=== PATIENT | female | born 1995 | race Hispanic/Latino ===

== ENCOUNTER 2022-05-04 20:10 | Emergency (ER) | payer OTHER, SELFPAY ==
[2022-05-04 20:11] VITALS: BP 129/83; PULSE 78; RESP 18; TEMP 35.9; O2SAT 100; BMI 23.1
--- NOTE | 2022-05-04 21:04 | CT_ITS ---
INDICATION: mono, left abd pain EXAMINATION: CT Abdomen And Pelvis W/O Contrast Injection TECHNIQUE: Helically acquired images were obtained of the abdomen and pelvis without the use of IV contrast. A radiation dose optimization technique was used for this scan. Oral contrast: None. COMPARISON: None FINDINGS: Evaluation of the solid organs and vascular structures is limited without intravenous contrast. Visualized lung bases: Unremarkable Liver: Unremarkable Gallbladder: Unremarkable Spleen: Unremarkable Pancreas: Unremarkable Adrenal Glands: Unremarkable Kidneys: Unremarkable Vasculature: Unremarkable GI Tract: Unremarkable Lymphadenopathy: None Peritoneum: No ascites. Bladder: Unremarkable Reproductive organs: Unremarkable Bones/Soft tissues: No suspicious osseous or soft tissue lesions CT/Abdomen/Pelvis without Cont IMPRESSION: No acute abnormalities in the abdomen or pelvis. Electronically Signed: Don Diaz MD at 22:56 EDT ,
--- NOTE | 2022-05-04 21:17 | EDS_ITS ---
HPI History of Present Illness Chief Complaint: Abd Pain Informant: patient Onset/Context/Timing Onset: Days (Worse today) Context: Gradual Onset Current Severity: Moderate Maximum Severity: Moderate Narrative Narrative: Patient presents with left-sided abdominal pain. She reports having symptoms of mono for the past 3 weeks but was tested positive on Wednesday of last week, April 29. She states her doctor specifically told her to avoid any abdominal trauma due to concern for spleen injury. Patient states that she has had some left-sided abdominal pain since last week but it did seem to be worsened today. PFSH PFSH Medical History no medical history no medical history Allergy/AdvReac Type Severity Reaction Status Date / Time sulfamethoxazole Allergy Rash Verified 05/04/22 20:11 [From Bactrim] trimethoprim [From Bactrim] Allergy Rash Verified 05/04/22 20:11 Social History Smoking Status: Never smoker ROS ROS ED Constitutional Constitutional ED: Denies chills or fever(s) Eyes Eyes: Denies change in vision or discharge from eye(s) ENT ENT ED: Denies discharge from eye(s), rhinorrhea or sore throat Cardiovascular Cardiovascular: Denies chest pain or palpitations Respiratory/Chest Respiratory/Chest: Denies cough or dyspnea Gastrointestinal Gastrointestinal: Reports abdominal pain; Denies diarrhea, nausea or vomiting Genitourinary Genitourinary ED: Denies difficulty urinating or dysuria Musculoskeletal Musculoskeletal: Reports back pain; Denies extremity pain Integumentary Denies Abrasions or rash Neurologic Neurologic: Denies headache(s) or weakness Allergic/Immunologic Allergic/Immunologic ED: Denies lip swelling or urticaria EXAM Physical Exam Const Vital Signs: 05/04/22 20:11 Temperature 96.6 F L Temperature Source Temporal Pulse Rate 78 Respiratory Rate 18 Blood Pressure 129/83 H Blood Pressure Mean 98 Pulse Ox 100 Oxygen Delivery Method Room Air Positive well nourished and well developed General Appearance ED: well developed HEENT Reports normocephalic and head/scalp atraumatic Eyes PERRL and EOMs intact bilaterally Neck supple Chest Wall inspection of chest normal and palpation of chest normal Resp normal respiratory effort and clear to auscultation bilaterally Cardio regular rate and regular rhythm GI GI Narrative: Left-sided abdominal tenderness. No guarding or rebound. Palpation: soft Extremity normal to inspection Neuro oriented x3 and no sensory deficits noted Sensorium / Orientation: alert Motor Exam: strength 5/5 throughout Psych mental status grossly normal Skin no rashes or lesions noted MDM MDM MDM Narrative Medical decision making narrative: Patient declines anything for pain here. Lab work obtained along with a CT of the abdomen pelvis. Lab Data Attestation: I reviewed the patient's lab results. Labs: Laboratory Results - last 24 hr 05/04/22 05/04/22 05/04/22 21:15 21:15 21:15 WBC 8.7 RBC 4.22 Hgb 12.7 Hct 37.6 MCV 89.1 MCH 30.1 MCHC 33.8 RDW Std Deviation 40.7 RDW Coeff of Maribel 12.4 Plt Count 213 MPV 11.7 Immature Gran % (Auto) 0.100 Neut % (Auto) 62.8 Lymph % (Auto) 27.3 [place] % (Auto) 6.5 Eos % (Auto) 3.0 Baso % (Auto) 0.3 Absolute Neuts (auto) 5.5 Absolute Lymphs (auto) 2.37 Nucleated RBC % 0 Sodium 139 Potassium 3.7 Chloride 106 Carbon Dioxide 28.0 Anion Gap 5 BUN 13 Creatinine 0.86 Estim Creat Clear Calc 97.24 Est GFR (MDRD) Af Amer 103 Est GFR (MDRD) Non-Af 85 BUN/Creatinine Ratio 15.1 Glucose 94 Calcium 9.0 Serum , Qual NEGATIVE Radiography Diagnostic Testing: Clinical Impression(s) from Imaging Studies Abdomen/Pelvis CT 05/04/22 21:04 IMPRESSION: No acute abnormalities in the abdomen or pelvis. Electronically Signed: Don Diaz MD at 22:56 EDT , Treatment and Re-Evaluation Narrative: Lab work is unremarkable. test negative. CT scan of the flank reveals no acute abnormalities. Spleen specifically is normal in size. Test results discussed with patient and at bedside. Reassurance is given. Return instructions provided. Discharge Plan Triage Chief Complaint: Abd Pain ED Provider: Estefanía Damon Dx/Rx/DC Orders Clinical Impression: Abdominal pain Instructions: ED Abdominal Pain Unkn Cause Fem Stand Alone Forms: ED Work / School Excuse Primary Care Provider: Care Physician,No Primary Referrals: Alessandra Harrison MD [STAFF PHYSICIAN] - As Needed NOT,DEFINED [NON-STAFF] - Disposition Disposition: Home, Self Care
[2022-05-04 21:24] LABS: Absolute Lymphocyte Count 2.37 X10^3/uL (0.83-4.51); Absolute Neutrophil Count 5.5 X10^3/uL (2.0-7.7); Basophil# 0.03 X10^3/uL; Basophil% 0.3 % (0-1); Eosinophil# 0.26 X10^3/uL; Hematocrit 37.6 % (37-47); Hemoglobin 12.7 g/dL (12.0-15.0); Lymphocyte # 2.37 X10^3/ul (0.83-4.51); Lymphocyte % 27.3 % (19-41); Mean Corp Hgb Conc 33.8 g/dL (32-36); Mean Corpuscular Hgb 30.1 pg (27.0-32.0); Mean Corpuscular Volume 89.1 fL (81-99); Mean Platelet Vol. 11.7 fl (6.2-12.0); Monocyte# 0.56 X10^3/uL; Monocyte% 6.5 % (0-10); NRBC Flagged by Analyzer 0 % (0-5); Neutrophil # 5.45 X10^3/uL (2.7-7.7); Neutrophil % 62.8 % (47-70); Platelet Count 213 K/mm3 (150-450); RBC Distribution Width CV 12.4 % (11.6-14.6); RBC Distribution Width SD 40.7 fl (35.1-43.9); Red Blood Count 4.22 M/mm3 (4.2-5.4); White Blood Count 8.7 K/mm3 (4.4-11.0)
[2022-05-04 21:35] LABS: Anion Gap 5 (5-15); BUN 13 mg/dL (7-18); BUN/Creat Ratio 15.1 RATIO (10-20); Chloride 106 mmol/L (98-107); Creatinine, Serum 0.86 mg/dL (0.55-1.02); EST Glomerular Filtration Rate 85 mL/min (>60); Est Glom Filt Rate - Afr Amer 103 mL/min (>60); Estimated Creatinine Clearance 97.24 ml/min; Glucose 94 mg/dL (74-106); Potassium 3.7 mmol/L (3.5-5.1); Sodium Level 139 mmol/L (136-145)
[2022-05-04 21:38] LABS: Internal QC Validated? YES +Cl - CLEAR BKGD; Pregnancy, Serum, hCG Quali. NEGATIVE Negative
== END 2022-05-04 23:14 | disposition home or self-care (01) ==
PROVIDERS: Emergency Provider Emergency Medicine; Visit Provider Emergency Medicine
DX: R10.9 Unspecified abdominal pain (principal)
CPT/HCPCS: 74176; 80048; 84703; 85025; 99283; A4216

== ENCOUNTER 2023-09-07 09:02 | Emergency (ER) | payer OTHER, SELFPAY ==
[2023-09-07 09:02] VITALS: BP 126/79; PULSE 104; RESP 14; TEMP 36.4; O2SAT 98; BMI 28.5
--- NOTE | 2023-09-07 09:10 | NURSING ---
NO OLD EKGS
--- NOTE | 2023-09-07 09:23 | EKG12_ITS ---
Test Reason : CHEST PAIN Blood Pressure : / mmHG Vent. Rate : 089 BPM Atrial Rate : 089 BPM P-R Int : 142 ms QRS Dur : 084 ms QT Int : 360 ms P-R-T Axes : 058 091 045 degrees QTc Int : 438 ms Normal sinus rhythm Rightward axis BORDERLINE ECG Confirmed by MERLYN BEAN, BUDDY ([id number]), staff editor JJ ANN ([id number]) on 09/08/2023 6:54:22 AM Referred By: Confirmed By:BUDDY ZULETA MD
--- NOTE | 2023-09-07 09:26 | EX.ED.DYSGE1 ---
HPI History of Present Illness Chief Complaint: Chest Pain Informant: patient and spouse/S.O. Narrative Narrative: 27-year-old female presenting to the emergency room with chief complaint of chest pain patient is 31 weeks G3, P1. She follows with [facility]. She states that she has had significant acid reflux symptoms during the third trimester so far. This was a issue but not to this extent with her first . She reports that last night she developed her acid reflux symptoms and then developed a tightness in her chest. She states that it lasted about 5 hours. She notes a paresthesia in the triceps area of her left arm and discomfort in the left lower back. No pain with movement. She denies any muscle strength loss. No sensory loss. Patient denies any muscle cramps. She has been feeling the baby move and denies any leakage of fluid or no cough or shortness of breath. During the night she tried multiple home remedies for her reflux including Pepcid. [facility] Medical History Encounter for physical examination of prospective adoptive parent Home Medications prenat.vits,barbara,[id number] 1 tab PO DAILY 12/27/22 [History Last Taken Unknown] Allergy/AdvReac Type Severity Reaction Status Date / Time sulfamethoxazole Allergy Rash Verified 09/07/23 09:02 [From Bactrim] trimethoprim [From Bactrim] Allergy Rash Verified 09/07/23 09:02 Social History Smoking Status: Never smoker ROS ROS ED Constitutional Constitutional ED: Denies chills or weight loss Eyes Eyes: Denies change in vision or diplopia ENT ENT ED: Denies ear pain, rhinorrhea or sore throat Cardiovascular Cardiovascular: Reports chest pain; Denies orthopnea, palpitations or racing heartbeat Respiratory/Chest Respiratory/Chest: Denies cough, dyspnea or orthopnea Gastrointestinal Gastrointestinal: Denies abdominal pain, diarrhea, nausea or vomiting Genitourinary Genitourinary ED: Denies dysuria, hematuria or urinary frequency Musculoskeletal Musculoskeletal: Reports neck pain; Denies arthralgias, back pain or myalgias Integumentary Denies abscess or rash Neurologic Neurologic: Reports paresthesias LUE; Denies headache(s) or weakness Psychiatric Psychiatric: Denies anxiety, depression, suicidal ideation or suicidal thoughts Endocrine Endocrinology: Denies polydipsia, polyphagia or polyuria Allergic/Immunologic Allergic/Immunologic ED: Denies mouth swelling, tongue swelling or urticaria EXAM Physical Exam Const Vital Signs: 09/07/23 09:02 09/07/23 09:42 09/07/23 09:50 Temperature 97.6 F L Temperature Source Temporal Pulse Rate 104 H 96 Respiratory Rate 14 15 Respiratory Effort Normal Blood Pressure 126/79 H 112/76 Blood Pressure Mean 94 88 Pulse Ox 98 97 Oxygen Delivery Method Room Air Room Air Positive well nourished and well developed General Appearance ED: well developed HEENT Reports normocephalic, head/scalp atraumatic and moist mucous membranes Eyes PERRL and EOMs intact bilaterally Neck no lymphadenopathy, supple and no JVD Resp normal respiratory effort and clear to auscultation bilaterally Cardio regular rate, regular rhythm and no murmurs GI normal to inspection, nondistended, normoactive bowel sounds and non-tender GI Narrative: Gravid uterus Palpation: soft Back/Spine no CVA tenderness and normal ROM Extremity normal to inspection General Extremety ED: Negative for edema General Extremity: Negative for edema Neuro oriented x3 and CN's II-XII intact bilaterally Sensorium / Orientation: alert Motor Exam: strength 5/5 throughout Psych mental status grossly normal Mood & Affect: Negative for depressed or tearful Skin no rashes or lesions noted and no wounds MDM MDM MDM Narrative Medical decision making narrative: White blood cell count 0.4 hemoglobin 11.3. Platelet count of 192. Troponin is normal. BMP showed normal electrolytes and a glucose of 97. My independent interpretation of the single view chest x-ray is no acute process. Patient is a normal sinus rhythm. I believe that the symptoms last night were related to GERD and the paresthesias in the triceps region is most likely due to musculoskeletal changes in the lower cervical myofascial region. Would recommend conservative treatment and observation return if worsening or concerns History & Record Review Discussion w/independent historian: Patient and Significant other Lab Data Attestation: I reviewed the patient's lab results. Labs: Laboratory Results - last 24 hr 09/07/23 08:30 WBC 8.4 RBC 3.89 L Hgb 11.3 L Hct 34.4 L MCV 88.4 MCH 29.0 MCHC 32.8 RDW Std Deviation 41.4 RDW Coeff of Maribel 12.9 Plt Count 192 MPV 11.6 Immature Gran % (Auto) 0.900 Neut % (Auto) 70.2 H Lymph % (Auto) 18.1 L [place] % (Auto) 9.2 Eos % (Auto) 1.2 Baso % (Auto) 0.4 Absolute Neuts (auto) 5.9 Absolute Lymphs (auto) 1.53 Nucleated RBC % 0 Sodium 139 Potassium 3.7 Chloride 106 Carbon Dioxide 25.0 Anion Gap 8 BUN 6 L Creatinine 0.65 Estim Creat Clear Calc 127.54 Est GFR (MDRD) Af Amer 140 Est GFR (MDRD) Non-Af 116 BUN/Creatinine Ratio 9.2 L Glucose 97 Calcium 9.0 Troponin I High Sens 4 Radiography Diagnostic Testing: Clinical Impression(s) from Imaging Studies Chest X-Ray 09/07/23 09:40 IMPRESSION: Normal x-ray examination of the chest. Electronically Signed: Dillon Corey MD at 9:53 EDT , EKG Initial EKG: Attestation: I personally reviewed and interpreted this EKG as follows: Comments: Normal sinus rhythm with a ventricular rate of 89 bpm. 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
--- NOTE | 2023-09-07 09:40 | RAD_ITS ---
STUDY: X-RAY CHEST REASON FOR EXAM: Female, 27 years old. Chest pain -- 31 weeks . The patient was shielded. TECHNIQUE: Single AP portable view of the chest. COMPARISON: None. FINDINGS: EKG electrodes are seen. The lungs are clear and expanded. There is no demonstrated pleural abnormality. Normal size heart. Normal mediastinum and shaye. Normal visualized pulmonary arteries. Normal visualized aortic arch and descending thoracic aorta. Normal visualized thoracic spine. Normal visualized ribs, clavicles, and shoulders. There is no demonstrated abnormality of the visualized soft tissue structures of the upper abdomen. RAD/Chest 1 View (Portable) IMPRESSION: Normal x-ray examination of the chest. Electronically Signed: Dillon Corey MD at 9:53 EDT ,
[2023-09-07 09:42] VITALS: BP 112/76; PULSE 96; RESP 15; O2SAT 97
[2023-09-07 09:44] LABS: Absolute Lymphocyte Count 1.53 X10^3/uL (0.83-4.51); Absolute Neutrophil Count 5.9 X10^3/uL (2.0-7.7); Basophil# 0.03 X10^3/uL; Basophil% 0.4 % (0-1); Eosinophils% 1.2 % (0-5); Hematocrit 34.4 % (37-47); Hemoglobin 11.3 g/dL (12.0-15.0); Lymphocyte # 1.53 X10^3/ul (0.83-4.51); Lymphocyte % 18.1 % (19-41); Mean Corp Hgb Conc 32.8 g/dL (32-36); Mean Corpuscular Volume 88.4 fL (81-99); Mean Platelet Vol. 11.6 fl (6.2-12.0); Monocyte# 0.78 X10^3/uL; Monocyte% 9.2 % (0-10); NRBC Flagged by Analyzer 0 % (0-5); Neutrophil # 5.92 X10^3/uL (2.7-7.7); Neutrophil % 70.2 % (47-70); Platelet Count 192 K/mm3 (150-450); RBC Distribution Width CV 12.9 % (11.6-14.6); RBC Distribution Width SD 41.4 fl (35.1-43.9); Red Blood Count 3.89 M/mm3 (4.2-5.4); White Blood Count 8.4 K/mm3 (4.4-11.0)
[2023-09-07 10:00] LABS: Anion Gap 8 (5-15); BUN 6 mg/dL (7-18); BUN/Creat Ratio 9.2 RATIO (10-20); Chloride 106 mmol/L (98-107); Creatinine, Serum 0.65 mg/dL (0.55-1.02); EST Glomerular Filtration Rate 116 mL/min (>60); Est Glom Filt Rate - Afr Amer 140 mL/min (>60); Estimated Creatinine Clearance 127.54 ml/min; Glucose 97 mg/dL (74-106); Potassium 3.7 mmol/L (3.5-5.1); Sodium Level 139 mmol/L (136-145); Troponin-I HS 4 pg/mL (3.0-54.0)
[2023-09-07 11:04] VITALS: BP 111/70; PULSE 64; RESP 14; TEMP 36.4; O2SAT 100
== END 2023-09-07 11:05 | disposition home or self-care (01) ==
PROVIDERS: Emergency Provider Emergency Medicine; Visit Provider Emergency Medicine
DX: O99.613 Diseases of the digestive system complicating pregnancy, third trimester (principal); R07.9 Chest pain, unspecified; R20.2 Paresthesia of skin; O99.891 Other specified diseases and conditions complicating pregnancy; K21.9 Gastro-esophageal reflux disease without esophagitis; Z3A.00 Weeks of gestation of pregnancy not specified
CPT/HCPCS: 71045; 80048; 84484; 85025; 93005; 99284; A4216

== ENCOUNTER 2023-10-26 21:40 | Inpatient (IN) | payer OTHER, SELFPAY ==
[2023-10-26] VITALS (31 sets, daily range): BP systolic 124–146; BP diastolic 57–86; PULSE 48–118; TEMP 37.1; O2SAT 80–100; BMI 32.1
[2023-10-26] MEDS: LACTATED RINGERS 500 ML 999 ML IV (21:45)
[2023-10-26 22:05] LABS: Absolute Lymphocyte Count 1.76 X10^3/uL (0.83-4.51); Basophil# 0.03 X10^3/uL; Basophil% 0.2 % (0-1); Eosinophil# 0.08 X10^3/uL; Eosinophils% 0.6 % (0-5); Hematocrit 32.3 % (37-47); Hemoglobin 10.1 g/dL (12.0-15.0); Lymphocyte # 1.76 X10^3/ul (0.83-4.51); Lymphocyte % 12.4 % (19-41); Mean Corp Hgb Conc 31.3 g/dL (32-36); Mean Corpuscular Hgb 26.7 pg (27.0-32.0); Mean Corpuscular Volume 85.4 fL (81-99); Monocyte# 1.29 X10^3/uL; Monocyte% 9.1 % (0-10); NRBC Flagged by Analyzer 0 % (0-5); Neutrophil # 10.97 X10^3/uL (2.7-7.7); Neutrophil % 77.2 % (47-70); POSITIVE MORPHOLOGY YES; Platelet Count 187 K/mm3 (150-450); RBC Distribution Width CV 13.8 % (11.6-14.6); RBC Distribution Width SD 42.3 fl (35.1-43.9); Red Blood Count 3.78 M/mm3 (4.2-5.4); White Blood Count 14.2 K/mm3 (4.4-11.0)
[2023-10-26 22:18] LABS: Differential Comment SCANNED; Differential Indicated SCAN CRITERIA MET
[2023-10-26] MEDS: Lactated Ringers 1,000 ML 200 ML IV (22:25)
[2023-10-26 22:36] LABS: Syphilis Antibodies Non-reactive
[2023-10-26] MEDS: fentaNYL-bupivacaine (epidural) 100 ML BAG EPIDURAL (23:27)
[2023-10-27] VITALS (43 sets, daily range): BP systolic 102–135; BP diastolic 51–73; PULSE 81–133; RESP 16–18; TEMP 36.2–37.7; O2SAT 96–99
[2023-10-27] MEDS: Lactated Ringers 1,000 ML 200 ML IV (02:59)
[2023-10-27] MEDS: fentaNYL-bupivacaine (epidural) 100 ML BAG EPIDURAL (03:54)
[2023-10-27] MEDS: LACTATED RINGERS 500 ML 999 ML IV (04:35)
[2023-10-27] MEDS: Oxytocin 10 UNITS/ML Vial IM (05:30)
[2023-10-27] MEDS: Oxytocin 15 Units/NS 250ml 15 UNITS/250 ML IV.SOLN 83 UNITS IV (05:30)
--- NOTE | 2023-10-27 05:58 | PCM.HP.OB ---
HPI - General General Date of Admission: 10/26/23 Date of Service: 10/27/23 HPI Narrative MONET MAS, is a 28 F who presents with ctxs. Maternal Data Information Final ANDREW: 11/06/23 Gestational age: 38&4 PFSH PFSH Medical History (Updated 10/27/23 @ 05:[address] Pamela Nichols MD) Anxiety Encounter for physical examination of prospective adoptive parent Home Medications prenat.vits,barbara,[id number] 1 tab PO DAILY 12/27/22 [History Last Taken 10/26/23 19:30 1 TAB] famotidine 20 mg tablet (Pepcid) 20 mg PO BID acid absence management consultant 10/26/23 [History Last Taken 10/26/23 12:00] Allergy/AdvReac Type Severity Reaction Status Date / Time sulfamethoxazole Allergy Rash Verified 10/26/23 21:44 [From Bactrim] trimethoprim [From Bactrim] Allergy Rash Verified 10/26/23 21:44 Surgical History (Updated 10/26/23 @ 22:06 by Shalini Bryant) History of surgery Social History Smoking Status: Never smoker History Elective abortions Hx Para 1 Spontaneous abortions Hx # Term Pregnancies Ectopic pregnancies Hx # Pregnancies Multiple births # of living children Vital Signs Vital Signs Vital Signs: 10/26/23 22:04 10/26/23 22:05 10/26/23 22:05 Temperature Temperature Source Pulse Rate 103 H Blood Pressure 133/81 H BP Systolic 133 BP Diastolic 81 Pulse Ox 98 10/26/23 22:05 10/26/23 22:05 10/26/23 22:04 Temperature Temperature Source Temporal Pulse Rate 48 L Blood Pressure BP Systolic BP Diastolic Pulse Ox 80 10/26/23 22:04 10/26/23 22:51 10/26/23 22:52 Temperature 98.8 F Temperature Source Pulse Rate 105 H Blood Pressure 132/74 H BP Systolic 132 BP Diastolic 74 Pulse Ox 10/26/23 22:52 10/26/23 22:54 10/26/23 22:54 Temperature Temperature Source Pulse Rate 106 H Blood Pressure 136/86 H BP Systolic 136 BP Diastolic 86 Pulse Ox 99 10/26/23 22:57 10/26/23 22:57 10/26/23 23:01 Temperature Temperature Source Pulse Rate 99 Blood Pressure 133/63 H BP Systolic 133 BP Diastolic 63 Pulse Ox 100 10/26/23 23:01 10/26/23 23:02 10/26/23 23:02 Temperature Temperature Source Pulse Rate 116 H 108 H Blood Pressure BP Systolic BP Diastolic Pulse Ox 98 10/26/23 23:04 10/26/23 23:04 10/26/23 23:07 Temperature Temperature Source Pulse Rate 111 H 114 H Blood Pressure 124/61 H BP Systolic 124 BP Diastolic 61 Pulse Ox 10/26/23 23:07 10/26/23 23:10 10/26/23 23:10 Temperature Temperature Source Pulse Rate 116 H Blood Pressure 142/57 H BP Systolic 142 BP Diastolic 57 Pulse Ox 98 10/26/23 23:12 10/26/23 23:12 10/26/23 23:16 Temperature Temperature Source Pulse Rate 118 H Blood Pressure 135/65 H BP Systolic 135 BP Diastolic 65 Pulse Ox 98 10/26/23 23:16 10/26/23 23:17 10/26/23 23:17 Temperature Temperature Source Pulse Rate 112 H 104 H Blood Pressure BP Systolic BP Diastolic Pulse Ox 98 10/26/23 23:19 10/26/23 23:19 10/26/23 23:22 Temperature Temperature Source Pulse Rate 105 H 108 H Blood Pressure 128/65 H BP Systolic 128 BP Diastolic 65 Pulse Ox 10/26/23 23:22 10/26/23 23:25 10/26/23 23:25 Temperature Temperature Source Pulse Rate 103 H Blood Pressure 131/71 H BP Systolic 131 BP Diastolic 71 Pulse Ox 97 10/26/23 23:27 10/26/23 23:27 10/26/23 23:30 Temperature Temperature Source Pulse Rate 110 H Blood Pressure 132/66 H BP Systolic 132 BP Diastolic 66 Pulse Ox 97 10/26/23 23:30 10/26/23 23:31 10/26/23 23:31 Temperature Temperature Source Pulse Rate 106 H 106 H Blood Pressure 132/66 H BP Systolic 132 BP Diastolic 66 Pulse Ox 10/26/23 23:32 10/26/23 23:32 10/26/23 23:34 Temperature Temperature Source Pulse Rate 104 H Blood Pressure 127/70 H BP Systolic 127 BP Diastolic 70 Pulse Ox 98 10/26/23 23:34 10/26/23 23:37 10/26/23 23:37 Temperature Temperature Source Pulse Rate 102 H 100 Blood Pressure BP Systolic BP Diastolic Pulse Ox 98 10/26/23 23:41 10/26/23 23:42 10/26/23 23:42 Temperature Temperature Source Pulse Rate 107 H Blood Pressure 133/68 H BP Systolic 133 BP Diastolic 68 Pulse Ox 98 10/26/23 23:45 10/26/23 23:45 10/26/23 23:47 Temperature Temperature Source Pulse Rate 109 H 99 Blood Pressure 146/76 H BP Systolic 146 BP Diastolic 76 Pulse Ox 10/26/23 23:47 10/26/23 23:51 10/26/23 23:51 Temperature Temperature Source Pulse Rate 100 Blood Pressure 125/58 H BP Systolic 125 BP Diastolic 58 Pulse Ox 97 10/26/23 23:52 10/26/23 23:52 10/26/23 23:55 Temperature Temperature Source Pulse Rate 105 H Blood Pressure 127/72 H BP Systolic 127 BP Diastolic 72 Pulse Ox 98 10/26/23 23:55 10/26/23 23:57 10/26/23 23:57 Temperature Temperature Source Pulse Rate 99 107 H Blood Pressure BP Systolic BP Diastolic Pulse Ox 97 10/27/23 00:01 10/27/23 00:01 10/27/23 00:02 Temperature Temperature Source Pulse Rate 106 H 110 H Blood Pressure 123/65 H BP Systolic 123 BP Diastolic 65 Pulse Ox 10/27/23 00:02 10/27/23 00:05 10/27/23 00:05 Temperature Temperature Source Pulse Rate 100 Blood Pressure 134/65 H BP Systolic 134 BP Diastolic 65 Pulse Ox 98 Weight Weight: 204 lb 12.951 oz Body Mass Index (BMI) 32.1 Physical Exam Const alert and oriented x3 Chest inspection of chest normal GI soft to palpation, non-tender and non-distended Inspection: gravid external exam normal Narrative: cvx - 5cm on admission Labs Labs Labs: Blood Type A POSITIVE Antibody Screen NEGATIVE Hct 32.3 % (37-47) L Hgb 10.1 g/dL (12.0-15.0) L Syphilis Total Ab Non-reactive Rhogam given: No see [facility] H&P Assessment & Plan (1) 38 weeks gestation of : COMMENT: @ 38&4 PLAN: Plan Admit to L&D Expectant management Pain - comfortable with epidural GBS negative
--- NOTE | 2023-10-27 06:02 | EX.PCM.OBRPT ---
Maternal Data Information Final ANDREW: 11/06/23 Gestational age: 38&4 Vaginal Delivery Maternal Presentation Maternal Presentation: Active Labor Operative Information Date of Procedure: 10/27/23 Pre-Operative Diagnosis: Labor Post-Operative Diagnosis: Labor Surgery / Procedure Performed: Spontaneous Vaginal Delivery Type of Anesthesia: Epidural Drain: Hagan to straight drain Estimated Blood Loss: 300ml Findings Description of Procedure: Patient prepped & draped when C/C/+2. She pushed well to deliver the head. Loose nuchal cord reduced. head gently guided to allow delivery of anterior and posterior shoulders. No excess traction placed on head. Body delivered and 3VC clamped & cut in delayed fashion. Placenta delivered with gentle traction and good uterine tone obtained. Presentation: WENCESLAO Amniotic Membrane Rupture Type: Spontaneous Amniotic Fluid Description: Clear Placental Delivery Description: Expressed Placenta Disposition: [facility] Specimen(s) Removed: Placenta Cord Vessel Description: 3 Vessels Cord Entanglement: Around neck x 1, loose Nuchal Cord Compression: Without compression Infant A Gender: Male (Phillip) (1 minute): 8 (5 minute): 9 Delayed Cord Clamping: Yes Post Vaginal Delivery Medications Given After Delivery: IV Pitocin and IM Pitocin Episiotomy Description: None Laceration: None Complication Complications: None
[2023-10-27] MEDS: 0.9% Saline Lock 10 ML Syringe IV (08:30)
[2023-10-27] MEDS: Acetaminophen 500 MG Tablet 1000 MG PO (15:48)
[2023-10-28 01:00] VITALS: BP 130/78; PULSE 87; RESP 16; TEMP 36.6
[2023-10-28 05:27] VITALS: BP 113/81; PULSE 87; RESP 16; TEMP 36.6
[2023-10-28] MEDS: Ibuprofen 600 MG Tablet PO (05:31)
[2023-10-28 08:00] VITALS: BP 128/72; PULSE 76; RESP 20; TEMP 36.1
--- NOTE | 2023-10-28 10:12 | DCINST_ITS ---
Discharge Instructions Diet Discharge Diet: No restrictions Activity May resume sexual activity in: 6-8 weeks Dressing / Incision Call your doctor if you observe: Fever of 101 or Higher, Inability to urinate, Using more than 1 pad per hour and Uncontrolled pain Follow Up Care Please Follow Up With: Kristina Murray MD When: 1-2 weeks post and again at 6 weeks post . [phone] Test Results: Test results from this visit will be discussed in further detail at your follow- up appointment, if applicable. Discharge Plan Admission Admit Date/Time: 10/26/23 21:40 Attending Provider: Pamela Nichols Primary Care Provider: NATALEE DE LEÓN Discharge Orders/Prescriptions Prescriptions: New acetaminophen 500 mg Tablet 1,000 mg PO Q6H PRN PRN (Reason: Pain 1-10 Or Fever) Qty: 0 0RF ibuprofen 600 mg Tablet 600 mg PO Q6H PRN PRN (Reason: Pain Score 1-3) Qty: 0 0RF Continued prenat.vits,barbara,[id number] Tablet 1 tab PO DAILY famotidine [Pepcid] 20 mg tablet 20 mg PO BID Referrals / Follow Up: NATALEE DE LEÓN [Other] Disposition Disposition (needs filled in before D/C Order can be placed): Home, Self Care
--- NOTE | 2023-10-28 10:12 | PCM.PROGNOTE ---
Subjective Subjective patient seen at bedside, doing well. Patient reports good pain control. lochia mild. Objective Data Objective Data Vital Signs: Vital Signs Temp Pulse Resp BP Pulse Ox O2 Del Method 97 F L 76 20 H 128/72 H 98 Room Air 10/28/23 08:00 10/28/23 08:00 10/28/23 08:00 10/28/23 08:00 10/27/23 07:43 10/28/23 05:27 Oxygen Delivery Method Room Air Weight: 92.9 kg Body Mass Index (BMI) 32.1 Intake & Output: Intake and Output for Last 24 Hours 10/26/23 10/27/23 10/28/23 23:59 23:59 23:59 Intake Total 500 / 500 2166.66 / 2166.66 Output Total 1250 / 1250 Balance 500 / 500 916.66 / 916.66 Lab / Micro Data 10/26/23 21:45 Physical Exam Const alert and oriented x3 General Appearance: cooperative HEENT normocephalic Neck General: normal visual inspection GI soft to palpation and non-distended GI Narrative: Fundus firm Extremity normal to inspection and no calf tenderness Skin no rashes or lesions noted Neuro oriented x3 and CN's II-XII intact bilaterally Psych mental status grossly normal Assessment & Plan Assessment/Plan (1) Vaginal delivery: PLAN: Plan PPD# 1 , Doing well Routine care pain mgmt ambulation dc home
--- NOTE | 2023-10-29 10:30 | CASEMGMT ---
Social Work Assessment Labor and Delivery Unit Patient Address: [address] [place] [address] Phone number: [phone] Date of Referral:10/30/23 Time of Referral:? 1517 Referred By: Pamela Nichols Date of Intervention: 10/28/23?? Time of Intervention:?1200 Reason for Referral:? hx of anxiety Sw completed salina review and acknowledges social work consult due to maternal history of anxiety. Sw presented to bedside and introduced self to mother of baby (DEBORAH- Amara) and father of baby (FOB- Lionel). Sw explained sw role during hospitalization and completed psychosocial assessment. History obtained from: medical records, MOB and FOB Household composition: Currently residing in the family home is MOB, FOB, DEBORAH's older daughter (Laura, 5 years old) and now baby. Parents state that there are no housing concerns, their home is safe and adequate. Patient's parent/guardian status:? ?MOB states that she and FOB met through Facebook Dating and have been together for three years. NO concerns at this time regarding domestic violence or intimate partner violence. Medical History: ?DEBORAH is 27 year old female who is 3, para 1-now 2 following labor and delivery of baby. DEBORAH received routine care during with [facility]. MOB delivered baby on 10/27/23 via vaginal delivery at 38 weeks gestation. Baby boy, named Phillip, was born weighing 9lb 3oz and his apgars were 8 and 9 at one and five minutes of life respectfully. Baby will be followed by Dr.Emily Bustamante for pediatrics. DEBORAH is breast feeding and states that it is going well. Educational Status:? Both parents graduated from high school and attended some college, but no degree. Neither parent struggled with reading, learning or comprehension. Financial Status: FOB is gainfully employed outside of the home working construction. FOB states that he is able to take some time off of work. MOB is a stay at home mom. Supplies:?? Parents have obtained all necessary baby supplies, including: car seat, safe sleep space, clothes, diapers, wipes and a breast pump. Childcare/Caregiver(s):? MOB will be the primary caregiver to baby along with FOB when he is not at work. Transportation:?? No barriers Programs/Agencies Involved: ???MOB has [employer]. Children Services/Legal Issues:???No history of involvement, no issues or concerns warranted a referral to be made. Behavioral Health Issues: ??Mental Health History: ELVIN denies mental health history. DEBORAH states that she has been diagnosed with anxiety, is not currently prescribed any psychotropic medications to help with symptoms. DEBORAH states that her issues are primarily situational anxiety, and when she can tell that she is starting to struggle she removes herself from the situation. ??? Substance Use History: No substance use prior to or during . ?? Family History:?Parents deny family history of addiction and mental health diagnoses. ? Drug Screens: ??No urine screens observed in chart review. Family/Social Stressors:? Parents deny. Support Systems: Parents state that both sets of grandparents are supportive. Depression/Shaken Baby/Safe Sleeping:? Sw educated parents on signs and symptoms of baby blues and depression and anxiety. FOB stated that he appreciates this information because this is his first child and he is not familiar with these terms and does not know what to expect. Zia stated that because MOB has a history of anxiety she can be more susceptible to experiencing these issues. FOB stated that he believes he would be able to recognize a change in MOB and would know how to best support her. Sw educated parents on shaken baby prevention and ABCs of safe sleep. Parents expressed understanding. ASSESSMENT:? MOB and baby admitted following labor and delivery. Parents at bedside and observed to provide appropriate and loving hands on care of baby. Parents were talkative and engaged in assessment. Parents have resources, supports and everything they need for baby. MOB with mental health history and she states that she would talk to F[place] or her friends if she feels like she is struggling and could use extra supports. List of [facility] resources provided to parents to reference should any needs present themselves. PLAN:? MOB and baby to be discharged when medically ready. ?No other services requested or indicated. Bo Dinh, CLAIM SPECIALIST, DISPATCHER SERVICE
== END 2023-10-28 13:40 | disposition home or self-care (01) | DRG 807 ==
LOC: WPOUT 21:43 → WP 21:43
PROVIDERS: Admitting Provider Obstetrics & Gynecology; Referring Provider Obstetrics & Gynecology; Visit Provider Obstetrics & Gynecology
DX: O42.92 Full-term premature rupture of membranes, unspecified as to length of time between rupture and onset of labor (principal); Z37.0 Single live birth; O69.81X0 Labor and delivery complicated by cord around neck, without compression, not applicable or unspecified; Z3A.38 38 weeks gestation of pregnancy
CPT/HCPCS: 59025; 59050; 85025; 86780; 86850; 86900; 86901; 99221; J7120; A4216; G0378